=== PATIENT | female | born 1990 | race Caucasian/White ===

== ENCOUNTER 2019-05-25 16:34 | Emergency (ER) | payer MEDICAID, SELFPAY ==
[2019-05-25 16:37] VITALS: BP 137/71; PULSE 106; RESP 18; TEMP 36.9; O2SAT 99; BMI 30.7
--- NOTE | 2019-05-25 17:27 | CT_ITS ---
STUDY: CT BRAIN WITHOUT CONTRAST REASON FOR EXAM: Female, 29 years old. Fell down stairs, no LOC. RADIATION DOSAGE (If Supplied By Facility): CTDIvol = ( 44.99 ) mGy, DLP = ( 745.49 ) mGycm TECHNIQUE: Transaxial CT imaging of the brain was performed without administration of intravenous contrast material. Individualized dose optimization techniques were used for this CT. COMPARISON: No relevant priors. FINDINGS: Normal soft tissue structures. Normal calvarium. Normal size ventricles and extra-axial spaces for the patient''s age. Normal white matter tracts of the cerebral hemispheres. Normal basal ganglia and thalami. Normal brainstem. Normal cerebellum. There is no intracranial hemorrhage. There are no findings of an acute ischemic infarction. Normal visualized paranasal sinuses. CT/Brain/Head without Contrast IMPRESSION: Normal unenhanced CT scan of the brain. Electronically Signed: Walker Chun MD at 17:52 EST , Service support ,
--- NOTE | 2019-05-25 17:34 | RAD_ITS ---
STUDY: X-RAY - LEFT RADIUS AND ULNA REASON FOR EXAM: Female, 29 years old. Fall. Laceration. TECHNIQUE: 2 view(s) of the forearm. COMPARISON: None. FINDINGS: There is no demonstrated soft tissue swelling. Normal visualized radius. Normal visualized ulna. There is no demonstrated acute fracture. RAD/Forearm 2 Views IMPRESSION: Normal x-ray examination of the radius and ulna. Electronically Signed: Walker Chun MD at 18:11 EST , Service support ,
--- NOTE | 2019-05-25 17:47 | ED.DCSUM_ITS ---
- ER Visit Summary Date of Service: 05/25/19 Chief Complaint: Fall History of Present Illness: The patient is a 29 F presenting after fall down steps. Patient states she slipped and fell down approximately 6 steps. She did hit her head but did not lose consciousness. Last tetanus is unknown. She has a laceration to her forehead and left forearm. She denies other injuries. Physical Examination: Vitals are stable. Patient is afebrile. Alert no acute distress. HEENT exam is unremarkable. Superficial abrasion right forehead Neck is nontender Lungs are clear and equal bilaterally. Heart is regular rate and rhythm. Abdomen is soft nontender nondistended. Extremities 5cm left forearm laceration, neurovascular intact distally. Tendon function intact. Skin is warm and dry. No focal neurologic deficit. Remainder of exam is unremarkable. Emergency Department Course and Treatment: CT head shows no acute process. Left forearm x-ray shows no fracture. Patient was given tetanus IM. Wound was irrigated. Anesthetized with LET and lidocaine. 7, 5-0 simple sutures were placed. Patient tolerated procedure well. Advised to follow-up for suture removal. Advised wound care instructions. Disposition: Discharged home Impression: Status post fall, forehead abrasion, left forearm laceration, laceration repair This note was generated with [employer] dictation software. It may contain incorrect words, spelling, and punctuation that were not noted in review of the chart prior to signing ED Disposition - Plan for ED Patient: Instructions: LACERATION, All Referrals: Care Physician,No Primary [Primary Care Provider] -
[2019-05-25] MEDS: Diphth,Pertuss(Acell),Tet Vac 0.5 ML Vial IM (18:49)
--- NOTE | 2019-05-25 19:09 | ED.DEP ---
ED Disposition - Plan for ED Patient: Instructions: LACERATION, All Referrals: Care Physician,No Primary [Primary Care Provider] -
[2019-05-25] MEDS: Lidocaine/Epi/Tetracaine 50 ML 1 APPLIC TOPICAL (19:18)
[2019-05-25 19:20] VITALS: PULSE 71; RESP 18; O2SAT 99
--- NOTE | 2019-05-25 19:21 | ED.RN ---
THIS NURSE REVIEWED D/C INSTRUCTIONS WITH PT. PT VERBALIZED UNDERSTANDING OF INSTRUCTIONS. DRESSING APPLIED. PT GIVEN DR AGUILAR FOR WORK TONIGHT. PT DENIES FURTHER NEEDS OR QUESTIONS AT THIS TIME. PT AMBULATES FROM ROOM ON OWN WITHOUT ASSISTANCE FROM STAFF
== END 2019-05-25 19:24 | disposition home or self-care (01) ==
PROVIDERS: Emergency Provider Emergency Medicine
DX: S51.812A Laceration without foreign body of left forearm, initial encounter (principal); S00.81XA Abrasion of other part of head, initial encounter; W10.9XXA Fall (on) (from) unspecified stairs and steps, initial encounter; Y93.9 Activity, unspecified; Y92.9 Unspecified place or not applicable; Z72.0 Tobacco use
CPT/HCPCS: 12001; 70450; 73090; 90471; 90715; 99282

== ENCOUNTER 2020-07-08 07:48 | Emergency (ER) | payer MEDICAID, SELFPAY ==
[2020-07-08 07:49] VITALS: BP 111/76; PULSE 80; RESP 16; TEMP 35.7; O2SAT 100; BMI 32.3
--- NOTE | 2020-07-08 08:14 | CT_ITS ---
STUDY: CT ABDOMEN AND PELVIS WITHOUT CONTRAST REASON FOR EXAM: Female, 30 years old. Pain. Prior cholecystectomy. RADIATION DOSAGE (If Supplied By Facility): CTDIvol = ( 15.93 ) mGy, DLP = ( 863.4 ) mGycm TECHNIQUE: Transaxial images were obtained from the dome of the diaphragm to the symphysis pubis without oral contrast, and without intravenous contrast. Sagittal and coronal images were reconstructed. Individualized dose optimization techniques were used for this CT. COMPARISON: Comparison is made with prior study dated 03/10/2011. FINDINGS: There is a 1.5 cm x 1.5 cm rounded nodular density in the lateral inferior aspect of the right breast with central calcification. This most likely represents a calcifying fibroadenoma. The visualized lung bases are unremarkable. The visualized portions of the heart are within normal limits. Normal liver. The patient is status post cholecystectomy. Normal spleen. Normal pancreas. Normal bilateral adrenal glands. Normal right kidney. Normal left kidney. Normal visualized stomach. Normal small intestine. Normal colon. The appendix is visualized and appears normal. Normal abdominal aorta. Normal inferior vena cava. Normal retroperitoneum. Thickened urinary bladder wall although the bladder is not adequately distended. Follicles are seen in both ovaries more prominent on the left side. Small amount of free fluid is seen in the cul-de-sac. Normal abdominal wall. Normal osseous structures. CT/Abdomen/Pelvis without Cont IMPRESSION: Status post cholecystectomy. Small amount of free fluid in the cul-de-sac. Bilateral ovarian follicles more prominent on the left side. Electronically Signed: Campos Willis MD at 9:25 EDT , Service support ,
--- NOTE | 2020-07-08 08:15 | ED.VIS.GEN ---
History of Present Illness Chief Complaint: Abd Pain Narrative: Patient woke up this morning with sharp stabbing abdominal pain. It is quite intense, it is somewhat intermittent. She has no flank pain. She has no left sided pain she has no upper abdominal pain. She has no vaginal discharge or vaginal bleeding she denies due to no sexual intercourse. She is denying any dysuria hematuria or any urinary symptoms. She tells me the pain is sharp and stabbing and waxing and waning. Past medical history: Depression Medications: Cymbalta Social history: Noncontributory Review of systems: All systems negative except as indicated General: Denies: Fever Eyes: Denies: Visual changes - bilaterally ENT: Denies: Rhinorrhea, Sore throat Cardiovascular: Denies: Chest pain Respiratory: Denies: Dyspnea, Cough Gastrointestinal: Abdominal pain without nausea vomiting diarrhea or constipation. Genitourinary: Denies: Dysuria Musculoskeletal: Denies: Myalgias Back: No flank pain or back pain Skin: Denies: Rash Neurological: Denies: Headache, no focal weakness Psych: Reports: negative Hematologic: Denies: Easy bruising, Easy bleeding Physical exam General: Patient appears in slight distress but otherwise she appears well and she appears healthy Head: Normocephalic, Atraumatic Eyes: Conjunctiva not pale ENT: Moist mucous membranes Neck: Supple, Nontender, No lymphadenopathy Cardiovascular: Regular rate, Regular rhythm Respiratory: No distress, CTA bilaterally Abdomen: Soft, there is tenderness in the right lower quadrant mostly suprapubic and right lower quadrant it is lower than McBurney's but there is some pain at McBurney's. There is no guarding or rebound. Back: Nontender, Normal Inspection. Negative for: CVA tenderness Extremities: Nontender, No edema Skin: Normal color, No rash Neurological: Alert, Normal Strength, Normal Sensation Psychological: Normal affect Past Medical History - Allergies and Home Meds Allergies/Adverse Reactions: Allergies Penicillins Allergy (Verified 07/08/20 07:49) Anaphylaxis vancomycin Allergy (Verified 07/08/20 07:49) Anaphylaxis metoclopramide [From Reglan] Adverse Reaction (Verified 07/08/20 07:49) Other Primary Care Physician: Care Physician,No Primary [Primary Care Provider] - Surgical History: noncontributory Smoking Status: Current every day smoker Physical Exam Vital Signs/Narrative: Vital Signs Temp Pulse Resp BP Pulse Ox 07/08/20 07:49 96.3 F L 80 16 111/76 100 Diagnostic/Tx/Re-eval - Medical Decision Making Patient has normal urinalysis. CT shows some ovarian follicles which may be the etiology for her symptoms. Otherwise she has a normal work-up. I will discharge in stable condition she has now improved. If she has worsening pain she is to return and she understands this. ED Disposition - Plan for ED Patient: Disposition: Home or Assisted Living Diagnosis: Abdominal pain Instructions: ED Abdominal Pain Unkn Cause Fem Prescriptions: Naproxen [Naprosyn] 500 mg PO BID PRN #20 tablet Transmission Status: Pending to [id number] Referrals: Care Physician,No Primary [Primary Care Provider] - 2 Days
[2020-07-08] MEDS: 0.9% Normal Saline 1,000 ML 1000 ML IV (08:30)
[2020-07-08] MEDS: Ondansetron 4 MG/2 ML Vial IV (08:30)
[2020-07-08] MEDS: Morphine 4 MG/ML Syringe IV (08:31)
[2020-07-08 08:33] LABS: Absolute Lymphocyte Count 2.37 X10^3/uL (0.83-4.51); Absolute Neutrophil Count 7.6 X10^3/uL (2.0-7.7); Basophil# 0.08 X10^3/uL; Basophil% 0.7 % (0-1); Eosinophil# 0.24 X10^3/uL; Eosinophils% 2.2 % (0-5); Hematocrit 45.3 % (37-47); Lymphocyte # 2.37 X10^3/ul (4.0); Lymphocyte % 21.4 % (19-41); Mean Corp Hgb Conc 33.1 g/dL (32-36); Mean Corpuscular Hgb 28.6 pg (27.0-32.0); Mean Corpuscular Volume 86.5 fL (81-99); Mean Platelet Vol. 10.1 fl (6.2-12.0); Monocyte# 0.74 X10^3/uL; Monocyte% 6.7 % (0-10); NRBC Flagged by Analyzer 0 % (0-5); Neutrophil # 7.62 X10^3/uL (2.7-7.7); Neutrophil % 68.5 % (47-70); Platelet Count 398 K/mm3 (150-450); RBC Distribution Width CV 13.4 % (11.6-14.6); RBC Distribution Width SD 42.3 fl (35.1-43.9); Red Blood Count 5.24 M/mm3 (4.2-5.4); White Blood Count 11.1 K/mm3 (4.4-11.0)
[2020-07-08 08:47] LABS: Color, Urine Yellow (Yellow); Glucose, Dipstick Normal (Normal); Ketone-Dipstick Negative (Negative); Leukocyte Esterase-Dipstick Negative /ul (Negative); Mucous, Urine 0 SEEN /hpf (<or=2+); Nitrite-Dipstick Negative (Negative); Occult Blood-Urine Negative /ul (Negative); Protein-Dipstick Negative (Negative); Red Blood Cells-Urine 0 SEEN /hpf (0-5); Specific Gravity, Urine 1.015 (1.002-1.030); Urine Bilirubin Dipstick Negative (Negative); Urine Clarity Clear (Clear); Urine Urobilinogen Normal (Normal)
[2020-07-08 08:48] LABS: ALB/GLOB Ratio 0.9 RATIO (0.9-2.4); AST(SGOT) 11 U/L (15-37); Alanine Aminotransfer ALT/SGPT 25 U/L (13-56); Albumin, Serum 3.4 g/dL (3.2-5.0); Alkaline Phosphatase 107 U/L (45-117); Anion Gap 4 (5-15); BUN 7 mg/dL (7-18); BUN/Creat Ratio 8.1 RATIO (10-20); Calcium,Total 8.7 mg/dL (8.5-10.1); Chloride 105 mmol/L (98-107); Creatinine, Serum 0.86 mg/dL (0.55-1.02); EST Glomerular Filtration Rate 83 mL/min (>60); Est Glom Filt Rate - Afr Amer 101 mL/min (>60); Estimated Creatinine Clearance 98.24 ml/min; Globulin 3.7 g/dL (2.2-4.2); Glucose 107 mg/dL (74-106); Lipase 90 U/L (73-393); Potassium 3.5 mmol/L (3.5-5.1); Protein, Total 7.1 g/dL (6.4-8.2); Sodium Level 137 mmol/L (136-145)
[2020-07-08 08:50] LABS: Internal QC Validated? YES +Cl - CLEAR BKGD; Pregnancy, Urine Negative Negative
[2020-07-08 08:55] LABS: White Blood Cells 0-5 SEEN /hpf (0-5)
[2020-07-08 08:56] LABS: Bacteria RARE /hpf (None Seen); Squamous Epithelial Cells - UA 0-5 SEEN /hpf (5-10)
[2020-07-08 10:51] VITALS: PULSE 76; RESP 18; O2SAT 76
== END 2020-07-08 10:53 | disposition home or self-care (01) ==
PROVIDERS: Emergency Provider Emergency Medicine
DX: R10.9 Unspecified abdominal pain (principal); F17.200 Nicotine dependence, unspecified, uncomplicated
CPT/HCPCS: 74176; 80053; 81001; 81025; 83690; 85025; 96361; 96374; 96375; 99283; J7030; A4216; J2405

== ENCOUNTER 2020-11-22 09:49 | Emergency (ER) | payer MEDICAID, SELFPAY ==
[2020-11-22 09:50] VITALS: BP 131/101; PULSE 98; RESP 18; TEMP 37.1; O2SAT 97; BMI 31.5
--- NOTE | 2020-11-22 10:03 | RAD_ITS ---
STUDY: X-RAY - LEFT WRIST REASON FOR EXAM: Female, 30 years old. fall, trauma, pain of the wrist TECHNIQUE: 3 view(s) of the wrist were obtained. COMPARISON: None. FINDINGS: Normal visualized distal radius and ulna. Normal radiocarpal articulation. Normal distal radioulnar articulation. Normal carpal bones. Normal carpal articulations. Normal carpometacarpal articulation of the thumb. Normal second through fifth carpometacarpal articulations. Normal visualized metacarpal bones. The soft tissue structures are unremarkable. RAD/Wrist min 3 Views IMPRESSION: No fracture or malalignment. Electronically Signed: Tylor Renteria MD ([place]) at 10:30 EDT , Service support ,
--- NOTE | 2020-11-22 10:03 | RAD_ITS ---
STUDY: X-RAY CHEST REASON FOR EXAM: Female, 30 years old. cough TECHNIQUE: AP COMPARISON: None. FINDINGS: The lungs are clear and expanded. There is no demonstrated pleural abnormality. Normal size heart. Normal mediastinum and miki. Normal visualized pulmonary arteries. Normal visualized aortic arch and descending thoracic aorta. Normal visualized thoracic spine. Normal visualized ribs, clavicles, and shoulders. There is no demonstrated abnormality of the visualized soft tissue structures of the upper abdomen. RAD/Chest 1 View (Portable) IMPRESSION: Nonacute portable x-ray examination of the chest. Electronically Signed: Tylor Renteria MD ([place]) at 10:30 EDT , Service support ,
--- NOTE | 2020-11-22 10:04 | EX.ED.DYSGE1 ---
HPI History of Present Illness Chief Complaint: Nausea/Vomiting/Diarrhea Informant: patient Narrative Narrative: Patient came in today because she fell on the steps. She fell on outstretched hand and has some left wrist pain. She states she bumped her head but it does not hurt. There is no loss of consciousness. The reason she fell is she is just tired and worn out and kind of misstepped. She was feeling lightheaded at the time. She states that about 2 days ago she started with nausea vomiting and then developed watery diarrhea. She has not seen blood in any of that she is also had some myalgias. No known fever. She is just felt decreased energy. She is able to drink fluids but they go right through her. Eating food does prompt the vomiting. This morning she started a little bit of coughing but is not productive and she is not actually short of breath. Her boyfriend is having similar symptoms. She has not had the Covid shot. He was tested for Covid yesterday but they do not have the result yet. Patient does report that about 13 years ago she had an episode of diarrhea. She was diagnosed with nonspecific colitis. They state that this could be early ulcerative colitis or Crohn's but she has never had any other symptoms. The symptoms started with nausea vomiting and then developed diarrhea she has never had blood in the stool. She is not having pain. She is on no current medications She does have several allergies as listed and reviewed. No recent surgeries She is a smoker [facility] Home Medications NK 11/22/20 [History Last Taken Unknown] Allergy/AdvReac Type Severity Reaction Status Date / Time Penicillins Allergy Anaphylaxis Verified 11/22/20 09:52 vancomycin Allergy Anaphylaxis Verified 11/22/20 09:52 metoclopramide [From Reglan] AdvReac Other Verified 11/22/20 09:52 Social History Smoking Status: Current every day smoker tobacco type: cigarettes ROS ROS ED Constitutional Constitutional ED: Reports other Details: Positive malaise. ; Denies chills or fever(s) Eyes Eyes: Denies blurry vision ENT ENT ED: Reports rhinorrhea Cardiovascular Cardiovascular: Denies chest pain or palpitations Respiratory/Chest Respiratory/Chest: Reports cough; Denies dyspnea, dyspnea on exertion or sputum Gastrointestinal Gastrointestinal: Reports diarrhea, nausea and vomiting; Denies abdominal pain, constipation or melena Genitourinary Genitourinary ED: Denies dysuria Musculoskeletal Musculoskeletal: Reports myalgias and other Details: Diffuse myalgias for a day or 2. Also left wrist pain after the fall. ; Denies arthralgias Integumentary Denies rash Neurologic Neurologic: Denies headache(s), paresthesias or weakness Endocrine Endocrinology: Denies polydipsia or polyuria Allergic/Immunologic Allergic/Immunologic ED: Denies urticaria EXAM Physical Exam Const Vital Signs: 11/22/20 09:50 Temperature 98.8 F Temperature Source Temporal Pulse Rate 98 Respiratory Rate 18 Blood Pressure 131/101 H Blood Pressure Mean 111 Pulse Ox 97 Oxygen Delivery Method Room Air Positive well nourished and well developed General Appearance ED: well developed and NAD; Negative for pallor HEENT Reports moist mucous membranes; Denies dry mucous membranes Negative for trauma or tenderness Mouth ED: No dry mucous membranes Mouth: No dry mucous membranes Eyes General Eye ED: Negative for pale conjunctiva or scleral icterus Resp normal respiratory effort and clear to auscultation bilaterally Effort and Inspection: Negative for pain with movement Auscultation: Negative for rales, rhonchi or wheezes Cardio regular rate, regular rhythm and no murmurs GI normal to inspection, nondistended, normoactive bowel sounds and non-tender Palpation: soft Back/Spine no CVA tenderness Extremity normal to inspection Extremity Narrative: No lower extremity edema or injury. She does have some tenderness to the distal radius area of the left upper extremity. No tenderness more proximally in the forearm elbow humerus or shoulder. No hand or finger tenderness. There is no visible deformity. General Extremety ED: Yes tenderness; Negative for edema General Extremity: Negative for edema Neuro oriented x3 Sensorium / Orientation: alert Psych mental status grossly normal Skin no rashes or lesions noted and no wounds General Skin Exam: Negative for jaundice or pallor Trauma: Negative for abrasion MDM MDM MDM Narrative Medical decision making narrative: Chest x-ray, wrist x-ray and Covid are all negative for acute process. I went and checked the patient. She still has some nausea. She states she did not come in for the nausea and vomiting. However, I explained I would like to try to help her. We will get her some Phenergan here. She is comfortable going home. Repeat exam shows nontender abdomen. She reports prior cholecystectomy. We will get her Zofran and Phenergan to go. Radiography Diagnostic Testing: Radiology Impression Chest X-Ray 11/22/20 10:03 IMPRESSION: Nonacute portable x-ray examination of the chest. Electronically Signed: Tylor Renteria MD ([place]) at 10:30 EDT , Service support , Wrist X-Ray 11/22/20 10:03 IMPRESSION: No fracture or malalignment. Electronically Signed: Tylor Renteria MD ([place]) at 10:30 EDT , Service support , Discharge Plan Triage Chief Complaint: Nausea/Vomiting/Diarrhea ED Provider: Dinesh Pardo Dx/Rx/DC Orders Clinical Impression: Nausea vomiting and diarrhea, Contusion of left wrist Prescriptions: No Action NK RF: 0 Primary Care Provider: Care Physician,No Primary Referrals: Niko Fine MD [STAFF PHYSICIAN] - 1-2 Days if not improving Care Physician,No Primary [Primary Care Provider] - Disposition Disposition: Home, Self Care
[2020-11-22] MEDS: Ondansetron ODT 4 MG Tablet PO (10:21)
[2020-11-22 12:00] VITALS: BP 129/77; PULSE 82; RESP 15; O2SAT 98
[2020-11-22] MEDS: proMETHazine 25 MG Tablet PO (12:00)
== END 2020-11-22 12:05 | disposition home or self-care (01) ==
PROVIDERS: Emergency Provider Emergency Medicine
DX: R11.2 Nausea with vomiting, unspecified (principal); R19.7 Diarrhea, unspecified; S60.212A Contusion of left wrist, initial encounter; W10.9XXA Fall (on) (from) unspecified stairs and steps, initial encounter; Y93.9 Activity, unspecified; Y92.9 Unspecified place or not applicable; Y99.9 Unspecified external cause status; F17.210 Nicotine dependence, cigarettes, uncomplicated
CPT/HCPCS: 71045; 73110; 87426; 99284

== ENCOUNTER 2020-11-25 21:41 | Emergency (ER) | payer MEDICAID, SELFPAY ==
[2020-11-25 21:42] VITALS: BP 139/104; PULSE 122; RESP 16; TEMP 36.7; O2SAT 98; BMI 30.5
--- NOTE | 2020-11-25 22:45 | CT_ITS ---
STUDY: CT ABDOMEN AND PELVIS WITH CONTRAST REASON FOR EXAM: Female, 30 years old. colitis RADIATION DOSAGE (If Supplied By Facility): CTDIvol = ( 16.30 ) mGy, DLP = ( 1265.42 ) mGycm TECHNIQUE: Transaxial images were obtained from the dome of the diaphragm to the symphysis pubis without oral contrast. IV 100mL Isovue-300 was administered. Sagittal and coronal images were reconstructed. Individualized dose optimization techniques were used for this CT. COMPARISON: None. FINDINGS: The visualized lung bases are unremarkable. The visualized portions of the heart are within normal limits. Normal liver. There is non-visualization of the gallbladder, which may be secondary to either contraction or a prior cholecystectomy. Normal spleen. Normal pancreas. Normal bilateral adrenal glands. Normal right kidney. Normal left kidney. Normal visualized stomach. Normal small intestine. Normal colon. The appendix is visualized and appears normal. Normal abdominal aorta. Normal inferior vena cava. Normal retroperitoneum. Normal urinary bladder. Normal abdominal wall. Normal osseous structures. CT/Abdomen/Pelvis W IV Cont ONLY IMPRESSION: Normal enhanced CT of the abdomen and pelvis. Electronically Signed: Pita Walker MD at 0:46 EDT Tel , Service support ,
--- NOTE | 2020-11-25 22:46 | EDS_ITS ---
HPI History of Present Illness Chief Complaint: Shortness of Breath Informant: patient Narrative Narrative: 30-year-old female presents the emergency department with diarrhea and abdominal pain. Patient states for the past 10 to 12 days she has had frequent diarrhea described as yellow and mucousy. No blood. Over the past 4 days she is also noted some vomiting. She was seen in the emergency department approximately 4 days ago following an episode where she fell down possibly due to dehydration and injured her left wrist. She states that her abdominal pain which is described as upper abdominal and severe nonradiating has worsened. She notes frequent small bowel movements. No fevers. She states she has had a prior cholecystectomy as well as EGD and lower endoscopy which she states she was prescribed Prilosec. She notes that last night she had a fever up to 102. She denies any cough sore throat fever. PFSH PFS Home Medications NK 11/22/20 [History Last Taken Unknown] Allergy/AdvReac Type Severity Reaction Status Date / Time Penicillins Allergy Anaphylaxis Verified 11/25/20 21:44 vancomycin Allergy Anaphylaxis Verified 11/25/20 21:44 metoclopramide [From Reglan] AdvReac Other Verified 11/25/20 21:44 Surgical History History of cholecystectomy Social History (Updated 11/25/20 @ 22:[address] Edward Campos DO) Smoking Status: Current every day smoker tobacco type: cigarettes substance use type: does not use ROS ROS ED Constitutional Constitutional ED: Reports fever(s); Denies chills or weight loss Eyes Eyes: Denies change in vision or diplopia ENT ENT ED: Denies ear pain, rhinorrhea or sore throat Cardiovascular Cardiovascular: Denies chest pain, orthopnea, palpitations or racing heartbeat Respiratory/Chest Respiratory/Chest: Denies cough, dyspnea or orthopnea Gastrointestinal Gastrointestinal: Reports abdominal pain, diarrhea, nausea and vomiting Genitourinary Genitourinary ED: Denies dysuria, hematuria or urinary frequency Musculoskeletal Musculoskeletal: Denies arthralgias or myalgias Integumentary Denies abscess or rash Neurologic Neurologic: Denies headache(s) or weakness Psychiatric Psychiatric: Denies anxiety, depression, suicidal ideation or suicidal thoughts Endocrine Endocrinology: Denies polydipsia, polyphagia or polyuria Allergic/Immunologic Allergic/Immunologic ED: Denies mouth swelling, tongue swelling or urticaria EXAM Physical Exam Const Vital Signs: 11/25/20 21:42 11/25/20 22:00 Temperature 98.1 F Temperature Source Temporal Pulse Rate 122 H Respiratory Rate 16 Respiratory Effort Normal Non-Labored Respiratory Pattern Normal Blood Pressure 139/104 H Blood Pressure Mean 115 Pulse Ox 98 Oxygen Delivery Method Room Air Positive well nourished and well developed General Appearance ED: well developed HEENT Reports normocephalic, head/scalp atraumatic and moist mucous membranes Eyes PERRL and EOMs intact bilaterally Neck no lymphadenopathy, supple and no JVD Resp normal respiratory effort and clear to auscultation bilaterally Cardio regular rate, regular rhythm and no murmurs GI Auscultation: normoactive bowel sounds Palpation: soft and tender epigastric, LUQ and RUQ Back/Spine no CVA tenderness and normal ROM Extremity normal to inspection General Extremety ED: Negative for edema General Extremity: Negative for edema Neuro oriented x3 and CN's II-XII intact bilaterally Sensorium / Orientation: alert Motor Exam: strength 5/5 throughout Psych mental status grossly normal Mood & Affect: Negative for depressed or tearful Skin no rashes or lesions noted and no wounds MDM MDM MDM Narrative Medical decision making narrative: White blood cell count 13.2. Covid test negative. test negative. CT the pelvis with IV contrast was negative. Patient received morphine Zofran IV fluids. She is resting more comfortably. Stool studies was obtained. These will be pending. Patient will be referred to primary care return if worsening or concerns Lab Data Attestation: I reviewed the patient's lab results. Labs: Laboratory Results - last 24 hr 11/25/20 11/25/20 11/25/20 22:59 22:59 22:59 WBC 13.2 H RBC 5.30 Hgb 15.5 H Hct 45.8 MCV 86.4 MCH 29.2 MCHC 33.8 RDW Std Deviation 43.5 RDW Coeff of Abdoulaye 13.8 Plt Count 331 MPV 11.3 Immature Gran % (Auto) 1.700 H Neut % (Auto) 71.1 H Lymph % (Auto) 19.9 [place] % (Auto) 5.1 Eos % (Auto) 1.7 Baso % (Auto) 0.5 Absolute Neuts (auto) 9.4 H Absolute Lymphs (auto) 2.63 Nucleated RBC % 0 Differential Comment SCANNED Platelet Estimate ADEQUATE Plt Morphology Comment CLUMPED Sodium 138 Potassium 3.3 L Chloride 108 H Carbon Dioxide 26.0 Anion Gap 4 L BUN 3 L Creatinine 0.70 Estim Creat Clear Calc 120.70 Est GFR (MDRD) Af Amer 126 Est GFR (MDRD) Non-Af 105 BUN/Creatinine Ratio 4.3 L Glucose 94 Calcium 8.9 Total Bilirubin 0.40 AST 39 H ALT 75 H Alkaline Phosphatase 115 Total Protein 7.4 Albumin 3.7 Globulin 3.7 Albumin/Globulin Ratio 1.0 Lipase 63 L Serum , Qual NEGATIVE Urine Color Urine Clarity Urine pH Ur Specific [place] Urine Protein Urine Glucose (UA) Urine Ketones Urine Occult Blood Urine Nitrite Urine Bilirubin Urine Urobilinogen Ur Leukocyte Esterase Urine RBC Urine WBC Ur Squamous Epith Cells Calcium Oxalate Crystal Amorphous Sediment Urine Bacteria Urine Mucus 11/25/20 23:30 WBC RBC Hgb Hct MCV MCH MCHC RDW Std Deviation RDW Coeff of Abdoulaye Plt Count MPV Immature Gran % (Auto) Neut % (Auto) Lymph % (Auto) [place] % (Auto) Eos % (Auto) Baso % (Auto) Absolute Neuts (auto) Absolute Lymphs (auto) Nucleated RBC % Differential Comment Platelet Estimate Plt Morphology Comment Sodium Potassium Chloride Carbon Dioxide Anion Gap BUN Creatinine Estim Creat Clear Calc Est GFR (MDRD) Af Amer Est GFR (MDRD) Non-Af BUN/Creatinine Ratio Glucose Calcium Total Bilirubin AST ALT Alkaline Phosphatase Total Protein Albumin Globulin Albumin/Globulin Ratio Lipase Serum , Qual Urine Color Yellow Urine Clarity Clear Urine pH 6.0 Ur Specific [place] 1.020 Urine Protein 30 H Urine Glucose (UA) Normal Urine Ketones Negative Urine Occult Blood Negative Urine Nitrite Negative Urine Bilirubin 1 H Urine Urobilinogen 1 H Ur Leukocyte Esterase 25 H Urine RBC 0-5 SEEN Urine WBC 0 SEEN Ur Squamous Epith Cells 0-5 SEEN Calcium Oxalate Crystal 1+ Amorphous Sediment 1+ Urine Bacteria RARE Urine Mucus 0 SEEN Radiography Diagnostic Testing: Radiology Impression Abdomen/Pelvis CT 11/25/20 22:45 IMPRESSION: Normal enhanced CT of the abdomen and pelvis. Electronically Signed: Pita Walker MD at 0:46 EDT Tel , Service support , Discharge Plan Triage Chief Complaint: Shortness of Breath Other Complaint: General Illness ED Provider: Edward Campos Dx/Rx/DC Orders Clinical Impression: Abdominal pain, acute, Diarrhea Instructions: ED Diarrhea, Unknown Cause Prescriptions: No Action NK RF: 0 Primary Care Provider: Care Physician,No Primary Referrals: Yumiko Summers MD [STAFF PHYSICIAN] - 3-5 Days if not improving Care Physician,No Primary [Primary Care Provider] - Disposition Disposition: Home, Self Care
[2020-11-25] MEDS: Morphine 4 MG/ML Syringe IV (23:06)
[2020-11-25] MEDS: Ondansetron 4 MG/2 ML Vial IV (23:06)
[2020-11-25] MEDS: 0.9% Normal Saline 1,000 ML 1000 ML IV (23:10)
[2020-11-25 23:33] LABS: Absolute Lymphocyte Count 2.63 X10^3/uL (0.83-4.51); Absolute Neutrophil Count 9.4 X10^3/uL (2.0-7.7); Basophil# 0.07 X10^3/uL; Basophil% 0.5 % (0-1); Eosinophil# 0.23 X10^3/uL; Eosinophils% 1.7 % (0-5); Hematocrit 45.8 % (37-47); Hemoglobin 15.5 g/dL (12.0-15.0); Lymphocyte # 2.63 X10^3/ul (0.83-4.51); Lymphocyte % 19.9 % (19-41); Mean Corp Hgb Conc 33.8 g/dL (32-36); Mean Corpuscular Hgb 29.2 pg (27.0-32.0); Mean Corpuscular Volume 86.4 fL (81-99); Mean Platelet Vol. 11.3 fl (6.2-12.0); Monocyte# 0.67 X10^3/uL; Monocyte% 5.1 % (0-10); NRBC Flagged by Analyzer 0 % (0-5); Neutrophil # 9.36 X10^3/uL (2.7-7.7); Neutrophil % 71.1 % (47-70); POSITIVE COUNT YES; Platelet Count 331 K/mm3 (150-450); RBC Distribution Width CV 13.8 % (11.6-14.6); RBC Distribution Width SD 43.5 fl (35.1-43.9); White Blood Count 13.2 K/mm3 (4.4-11.0)
[2020-11-25 23:36] LABS: Mucous, Urine 0 SEEN /hpf (<or=2+); White Blood Cells 0 SEEN /hpf (0-5)
[2020-11-25 23:38] LABS: Differential Indicated SCAN CRITERIA MET
[2020-11-25 23:43] LABS: Color, Urine Yellow (Yellow); Glucose, Dipstick Normal (Normal); Ketone-Dipstick Negative (Negative); Leukocyte Esterase-Dipstick 25 /ul (Negative); Nitrite-Dipstick Negative (Negative); Occult Blood-Urine Negative /ul (Negative); Protein-Dipstick 30 mg/dl (Negative); Urine Clarity Clear (Clear); Urine Urobilinogen 1 mg/dl (Normal)
[2020-11-25 23:46] LABS: Internal QC Validated? YES +Cl - CLEAR BKGD; Pregnancy, Serum, hCG Quali. NEGATIVE Negative
[2020-11-25 23:55] LABS: AST(SGOT) 39 U/L (15-37); Alanine Aminotransfer ALT/SGPT 75 U/L (13-56); Albumin, Serum 3.7 g/dL (3.2-5.0); Alkaline Phosphatase 115 U/L (45-117); Anion Gap 4 (5-15); BUN 3 mg/dL (7-18); BUN/Creat Ratio 4.3 RATIO (10-20); Calcium,Total 8.9 mg/dL (8.5-10.1); Chloride 108 mmol/L (98-107); EST Glomerular Filtration Rate 105 mL/min (>60); Est Glom Filt Rate - Afr Amer 126 mL/min (>60); Globulin 3.7 g/dL (2.2-4.2); Glucose 94 mg/dL (74-106); Lipase 63 U/L (73-393); Potassium 3.3 mmol/L (3.5-5.1); Protein, Total 7.4 g/dL (6.4-8.2); Sodium Level 138 mmol/L (136-145)
[2020-11-26] LABS: Differential Comment SCANNED; Platelet Estimate ADEQUATE (ADEQ); Platelet Morphology CLUMPED
[2020-11-26 00:03] LABS: Urine Bilirubin Dipstick 1 mg/dL (Negative)
[2020-11-26 00:09] LABS: Amorphous Sediment 1+; Bacteria RARE /hpf (None Seen); Calcium Oxalate Crystals Ur 1+ /hpf (<or=2+); Red Blood Cells-Urine 0-5 SEEN /hpf (0-5); Squamous Epithelial Cells - UA 0-5 SEEN /hpf (5-10)
[2020-11-26 02:13] VITALS: BP 105/79; PULSE 72; RESP 18; O2SAT 97
== END 2020-11-26 02:14 | disposition home or self-care (01) ==
PROVIDERS: Emergency Provider Emergency Medicine
DX: R10.10 Upper abdominal pain, unspecified (principal); R19.7 Diarrhea, unspecified; F17.210 Nicotine dependence, cigarettes, uncomplicated
CPT/HCPCS: 74177; 80053; 81001; 83690; 84703; 85025; 87426; 87506; 96361; 96374; 96375; 99284; J7030; Q9967; A4216; J2405

== ENCOUNTER 2022-06-24 20:37 | Emergency (ER) | payer MEDICAID, SELFPAY ==
[2022-06-24 20:38] VITALS: BP 129/87; PULSE 101; RESP 16; TEMP 36.2; O2SAT 99; BMI 33.0
--- NOTE | 2022-06-24 20:47 | CT_ITS ---
EXAM: CT HEAD WITHOUT INTRAVENOUS CONTRAST CLINICAL INDICATION: injury TECHNIQUE: Multiple axial images were obtained of the head without intravenous contrast. This CT exam was performed using one or more of the following dose reduction techniques: automated exposure control, adjustment of the mA and/or kV according to patient size, and/or use of iterative reconstruction technique. This report was created using [employer] report generation technology. COMPARISON: 05/25/2019 FINDINGS: BRAIN AND EXTRA-AXIAL SPACES: Unremarkable. No intra- or extra-axial hemorrhage. No evidence of acute infarct. No intracranial mass or mass effect. There is preservation of the pizarro/white matter interface. Posterior fossa structures are unremarkable. Ventricles are appropriate for age. No hydrocephalus. Basal cisterns are patent. BONES/JOINTS: Unremarkable. No discrete lytic or blastic abnormalities. SINUSES: Unremarkable as visualized. Clear. MASTOID AIR CELLS: Unremarkable. Clear. ORBITS: Visualized globes, extraocular muscles, optic nerves and retrobulbar fat appear unremarkable. CT/Brain/Head without Contrast IMPRESSION: Negative head/brain CT without intravenous contrast. There has been no change from the reference exam. Electronically Signed: Radames Louis MD at 21:49 EDT ,
--- NOTE | 2022-06-24 20:47 | CT_ITS ---
EXAM: CT CERVICAL SPINE WITHOUT INTRAVENOUS CONTRAST CLINICAL INDICATION: injury TECHNIQUE: Helically acquired images were obtained of the cervical spine without intravenous contrast. 2D reformatted images were reviewed. This CT exam was performed using one or more of the following dose reduction techniques: automated exposure control, adjustment of the mA and/or kV according to patient size, and/or use of iterative reconstruction technique. This report was created using [employer] report generation technology. COMPARISON: None. FINDINGS: VERTEBRAE: There is reversal of the normal cervical lordosis. No fracture. No traumatic subluxation. No discrete lytic or blastic abnormality. Normal craniocervical junction and cervicothoracic junction. DISCS/SPINAL CANAL/NEURAL FORAMINA: Unremarkable. Disc heights are preserved. No critical stenosis. SOFT TISSUES: Unremarkable. No prevertebral soft tissue swelling. LYMPH NODES: Unremarkable. No cervical adenopathy. LUNG APICES: Unremarkable as visualized. Clear. CT/Spine Cervical without Contras IMPRESSION: 1. No acute osseous abnormalities of the cervical spine. 2. Reversal the normal cervical lordosis which may be due to a muscular strain. Electronically Signed: Radames Louis MD at 21:52 EDT ,
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
[2022-06-24] MEDS: Naproxen 500 MG Tablet PO (22:32)
[2022-06-24] MEDS: cycloBENZAPRine HCl 10 MG Tablet PO (22:32)
== END 2022-06-24 22:37 | disposition home or self-care (01) ==
PROVIDERS: Emergency Provider Emergency Medicine; Visit Provider Emergency Medicine
DX: S06.0X0A Concussion without loss of consciousness, initial encounter (principal); S16.1XXA Strain of muscle, fascia and tendon at neck level, initial encounter; V53.5XXA Driver of pick-up truck or van injured in collision with car, pick-up truck or van in traffic accident, initial encounter; Y93.89 Activity, other specified; F17.210 Nicotine dependence, cigarettes, uncomplicated
CPT/HCPCS: 70450; 72125; 99283

== ENCOUNTER 2023-01-07 11:24 | Emergency (ER) | payer MEDICAID, SELFPAY ==
[2023-01-07 11:25] VITALS: BP 132/95; PULSE 106; RESP 18; TEMP 36.4; O2SAT 99; BMI 34.7
[2023-01-07 11:38] VITALS: O2SAT 97
--- NOTE | 2023-01-07 12:25 | EX.ED.DYSGE1 ---
HPI History of Present Illness Chief Complaint: Shortness of Breath Informant: patient Narrative Narrative: 32-year-old female presenting to the emergency room with chief complaint of dyspnea. Patient states on Wednesday she began to have congestion slight sore throat cough now tightness in the chest. She notes some posttussive emesis. She notes greenish-yellow sputum production beginning this morning. She was unable to complete a cigarette this morning. She states she had a history of asthma as a child but none since. She works with developmentally delayed individuals in the elderly. Subjective fever with chills and some sweats. There is a resident that has COVID-19. PFSH PFS Home Medications prednisone 20 mg tablet 60 mg (3 x 20 mg) PO DAILY #15 TABLETS 01/07/23 [Rx Last Taken Unknown] Allergy/AdvReac Type Severity Reaction Status Date / Time Penicillins Allergy Anaphylaxis Verified 01/07/23 11:27 vancomycin Allergy Anaphylaxis Verified 01/07/23 11:27 metoclopramide [From Reglan] AdvReac Other Verified 01/07/23 11:27 Surgical History History of cholecystectomy History of tonsillectomy and adenoidectomy Social History Smoking Status: Current every day smoker tobacco type: cigarettes substance use type: does not use ROS ROS ED Constitutional Constitutional ED: Reports chills, subjective and sweats; Denies weight loss Eyes Eyes: Denies change in vision or diplopia ENT ENT ED: Reports rhinorrhea and sore throat; Denies ear pain Cardiovascular Cardiovascular: Reports chest pain; Denies orthopnea, palpitations or racing heartbeat Respiratory/Chest Respiratory/Chest: Reports cough, dyspnea and sputum; Denies orthopnea Gastrointestinal Gastrointestinal: Reports vomiting; Denies abdominal pain, diarrhea or nausea Genitourinary Genitourinary ED: Denies dysuria, hematuria or urinary frequency Musculoskeletal Musculoskeletal: Denies arthralgias or myalgias Integumentary Denies abscess or rash Neurologic Neurologic: Denies headache(s) or weakness Psychiatric Psychiatric: Denies anxiety, depression, suicidal ideation or suicidal thoughts Endocrine Endocrinology: Denies polydipsia, polyphagia or polyuria Allergic/Immunologic Allergic/Immunologic ED: Denies mouth swelling, tongue swelling or urticaria EXAM Physical Exam Const Vital Signs: 01/07/23 11:25 01/07/23 11:38 Temperature 97.5 F L Temperature Source Temporal Pulse Rate 106 H Respiratory Rate 18 Respiratory Effort Normal Respiratory Depth Normal Respiratory Pattern Normal Blood Pressure 132/95 H Blood Pressure Mean 107 Pulse Ox 99 Oxygen Delivery Method Room Air Room Air Positive well nourished and well developed General Appearance ED: well developed HEENT Reports normocephalic, head/scalp atraumatic and moist mucous membranes HEENT Narrative: Turbinate edema with evidence of postnasal drip. Mild pharyngeal erythema. Eyes PERRL and EOMs intact bilaterally Neck no lymphadenopathy, supple and no JVD Resp normal respiratory effort Resp Narrative: Slight expiratory wheeze and rhonchi that clear with coughing Cardio regular rate, regular rhythm and no murmurs GI normal to inspection, nondistended, normoactive bowel sounds and non-tender Palpation: soft Back/Spine no CVA tenderness and normal ROM Extremity normal to inspection General Extremety ED: Negative for edema General Extremity: Negative for edema Neuro oriented x3 and CN's II-XII intact bilaterally Sensorium / Orientation: alert Motor Exam: strength 5/5 throughout Psych mental status grossly normal Mood & Affect: Negative for depressed or tearful Skin no rashes or lesions noted and no wounds MDM MDM MDM Narrative Medical decision making narrative: My interpretation of the chest x-ray is no acute process. RSV COVID and flu were negative on testing. Patient was instructed on the use of albuterol MDI. I will write for short course of steroids. Would recommend otherwise supportive care. Radiography Diagnostic Testing: Clinical Impression(s) from Imaging Studies Chest X-Ray 01/07/23 12:31 IMPRESSION: Normal x-ray examination of the chest. Electronically Signed: Sesar Kyle MD at 13:08 EDT Reading Location ID and State: [facility] / [place] , Service support , Discharge Plan Triage Chief Complaint: Shortness of Breath ED Provider: Edward Campos Dx/Rx/DC Orders Clinical Impression: Acute bronchitis with bronchospasm Instructions: ED Bronchitis with Wheezing (Adult) Prescriptions: New prednisone 20 mg tablet 60 mg PO DAILY Qty: 15 0RF Primary Care Provider: Care Physician,No Primary Referrals: Servando Khan MD [Med Staff - Executive Office Manager] - 10-14 Days if not better Care Physician,No Primary [Primary Care Provider] - Activity Restrictions/Additional Instructions: Please use the inhaler 3 puffs every 4 hours and as as needed. Smoking will definitely prolong this illness You may try some Mucinex D to help with the phlegm production and expectorating it Return if worsening or concerns. Disposition Disposition: Home, Self Care
[2023-01-07] MEDS: INHALER, ASSIST DEVICES 1 EACH SPACER INHALATION (12:28)
[2023-01-07] MEDS: Albuterol Sulfate 8 gm Inhaler (60 puffs) 4 PUFF INHALATION (12:28)
--- NOTE | 2023-01-07 12:31 | RAD_ITS ---
STUDY: X-RAY CHEST REASON FOR EXAM: Female, 32 years old. cough TECHNIQUE: PA and lateral views of the chest. COMPARISON: None. FINDINGS: The lungs are clear and expanded. There is no demonstrated pleural abnormality. Normal size heart. Normal mediastinum and miki. Normal visualized pulmonary arteries. Normal visualized aortic arch and descending thoracic aorta. Normal visualized thoracic spine. Normal visualized ribs, clavicles, and shoulders. There is no demonstrated abnormality of the visualized soft tissue structures of the upper abdomen. RAD/Chest PA and Lateral IMPRESSION: Normal x-ray examination of the chest. Electronically Signed: Sesar Kyle MD at 13:08 EDT ,
[2023-01-07 13:33] VITALS: BP 129/74; PULSE 61; RESP 15; O2SAT 99
== END 2023-01-07 13:34 | disposition home or self-care (01) ==
PROVIDERS: Emergency Provider Emergency Medicine; Visit Provider Emergency Medicine
DX: J20.9 Acute bronchitis, unspecified (principal); F17.210 Nicotine dependence, cigarettes, uncomplicated; R11.10 Vomiting, unspecified; J45.909 Unspecified asthma, uncomplicated; Z79.52 Long term (current) use of systemic steroids
CPT/HCPCS: 71046; 87428; 87807; 99282

== ENCOUNTER 2023-09-05 16:07 | Emergency (ER) | payer SELFPAY ==
[2023-09-05 16:08] VITALS: BP 127/82; PULSE 90; RESP 16; TEMP 36.8; O2SAT 98; BMI 34.9
--- NOTE | 2023-09-05 16:26 | RAD_ITS ---
EXAM: XR RIGHT FOOT COMPLETE, 3 OR MORE VIEWS CLINICAL INDICATION: ankle pain TECHNIQUE: Frontal, lateral and oblique views of the right foot. COMPARISON: No relevant prior studies available. FINDINGS: BONES/JOINTS: Unremarkable. No acute fracture. No subluxation. Normal alignment. Preservation of the joint space. No sclerotic or destructive changes observed. SOFT TISSUES: Unremarkable. No soft tissue swelling or gas. No radiopaque foreign body. RAD/Foot min 3 Views IMPRESSION: Negative right foot x-rays. Electronically Signed: Mickey Anthony MD at 16:46 EDT ,
--- NOTE | 2023-09-05 16:30 | RAD_ITS ---
EXAM: XR RIGHT ANKLE COMPLETE, 3 OR MORE VIEWS CLINICAL INDICATION: ankle pain TECHNIQUE: Frontal, lateral and oblique views of the right ankle. COMPARISON: No relevant prior studies available. FINDINGS: BONES/JOINTS: Unremarkable. No acute fracture. No subluxation. Normal alignment. Preservation of the joint space. No sclerotic or destructive changes observed. SOFT TISSUES: Unremarkable. No soft tissue swelling or gas. No radiopaque foreign body. RAD/Ankle min 3 Views IMPRESSION: Negative right ankle x-rays. Electronically Signed: Mickey Anthony MD at 16:45 EDT ,
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
[2023-09-05] MEDS: Ibuprofen 600 MG Tablet PO (17:39)
[2023-09-05 18:18] VITALS: BP 126/78; PULSE 64; RESP 189; TEMP 36.4; O2SAT 97
== END 2023-09-05 18:19 | disposition home or self-care (01) ==
PROVIDERS: Emergency Provider Emergency Medicine; Visit Provider Emergency Medicine
DX: S93.401A Sprain of unspecified ligament of right ankle, initial encounter (principal); F17.210 Nicotine dependence, cigarettes, uncomplicated; X50.1XXA Overexertion from prolonged static or awkward postures, initial encounter; Y93.01 Activity, walking, marching and hiking; Y92.830 Public park as the place of occurrence of the external cause
CPT/HCPCS: 73610; 73630; 99284